=== PATIENT | female | born 1980 | race Caucasian/White ===

== ENCOUNTER 2023-04-22 15:58 | Outpatient (AMB) | payer OTHER, SELFPAY ==
--- NOTE | 2023-04-22 16:14 | MHC.PC.OV ---
Vital Signs 04/22/23 16:17 Height 5 ft 6 in Weight 128 lb BMI 20.7 BP 100/58 L Blood Pressure Location Rt brachial Position Sitting Pulse 76 Pulse Source Pulse Oximeter Intake Visit Reasons: New patient-requesting physical Intake Note: Patient here to establish care and would like a physical exam. She states she gets migraines very bad that come about 3x a week. Accompanied by: Self / Same As Patient Is last menstrual period known: Yes Post menopausal: No Patient : No Allergies No Known Allergies Allergy (Verified 04/22/23 16:50) Medication List - Last Reconciled 04/22/23 by Nelson Goff, ADMINISTRATIVE VOLUNTEER- buprenorphine-naloxone 8-2 mg 2.5 film sublingual DAILY bupropion HCl 150 mg PO BID buspirone 10 mg PO TID gabapentin 300 mg PO .three times a day lorazepam 1 mg PO DAILY PRN minoxidil mg PO paroxetine HCl 20 mg PO DAILY tranexamic acid mg PO DAILY zolpidem 10 mg PO BEDTIME Tobacco use date assessed: 04/22/23 Dental Screening Dental Screen Date: 04/22/23 Did you have a dental visit in the last 12 months?: Yes Did you have a dental problem in the last 6 months where you did not have access to dental care?: No Was dental information given to patient?: Patient has dentist HPI New patient-requesting physical HPI Details New pt is here for a PE. Will order labs. 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 Due for mammo, will order. Pt sees a psychiatrist. She used to see a therapist and will call to get back in with them (pt reported). Denies any SI and HI. 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 pt had a right TM perforation, tympanoplasty (2009), pt reports loss of hearing since this procedure to her right ear. Will refer to speech and hearing, ? hearing aide. Pt c/o migraines. She reports trying sumatriptan in the past which helped. Will send sumatriptan 25mg. Pt reports photophobia and sonophobia with a migraine (without aura). Pt reports thinking she had imaging in the past. Pt reports the migraines occur several times a week, will consider a preventative in the future. PFSH Surgical History (Updated 04/22/23 @ 16:53 by Nelson Goff, [facility]) History of tympanoplasty of right ear Hx of fusion of cervical spine Social History Housing: Condominium Patient Tobacco Use Status: Former Tobacco user Tobacco use type: Cigarette e-Cigarette/Vaping Use: Currently Using service: No Current occupational status: disabled Cognitive needs: No Hearing needs: No Vision needs: No Questionnaire PHQ-9 Over the last 2 weeks, how often have you been bothered by any of the following problems? 1. Little interest or pleasure in doing things: nearly every day 2. Feeling down, depressed, or hopeless: nearly every day 3. Trouble falling or staying asleep, or sleeping too much: more than half the days 4. Feeling tired or having little energy: nearly every day 5. Poor appetite or overeating: nearly every day 6. Feeling bad about yourself - or that you are a failure or have let yourself or your family down: nearly every day 7. Trouble concentrating on things, such as reading the newspaper or watching television: more than half the days 8. Moving or speaking so slowly that other people could have noticed. Or the opposite - being so fidgety or restless that you have been moving around a lot more than usual: several days 9. Thoughts that you would be better off or of hurting yourself in some way: not at all Total score: 20 Depression Screening Interpretation: Positive Depression Screening Follow-up: Existing condition and In treatment Depression Screening Done: Yes 17145 - PHQ-9 Billing: Yes Source: Developed by Drs. Paolo Freitas, Adri Carver, Nico Peralta and colleagues, with an educational kenya from [email or web address]. Thrive Questionnaire Date Thrive assessed: 04/22/23 I am a: Patient What is your living situation today?: I have a steady place to live Within the past 12 months, did the food you bought not last and you didn't have the money to get more?: Never true Within the past 12 months, did you worry whether your food would run out before you got money to buy more?: Never true Do you have trouble paying for medicines?: No Do you have trouble getting transportation to medical appointments?: No Do you have trouble paying your heating and electricity bill?: No Do you have trouble taking care of your child, family member or friend?: No Do you have trouble with day-to-day activities such as bathing, preparing meals, shopping, managing finances, etc.?: No Are you currently unemployed and looking for a job?: Yes Are you interested in more education?: No Currently or been in a relationship where the following occur: no concerns reported AUDIT C Alcohol Use Questionnaire (AUDIT-C) 1. How often do you have a drink containing alcohol?: Monthly or less 2. How many drinks containing alcohol do you have on a typical day when you are drinking?: 1 or 2 3. How often do you have six or more drinks on one occasion?: Never Total Score: 1 Score Reviewed/Action Taken: No OLAYINKA-7 AMB Questionnaire OLAYINKA-7 Date OLAYINKA - 7 assessed: 04/22/23 Feeling nervous, anxious, or on edge: 2 = More than half the days Not being able to stop or control worryin = More than half the days Worrying too much about different things: 2 = More than half the days Trouble relaxin = More than half the days Being so restless that it is hard to sit still: 0 = Not at all Becoming easily annoyed or irritable: 3 = Nearly every day Feeling afraid as if something awful might happen: 0 = Not at all Total OLAYINKA-7 score (0-4 normal; 5-9 mild; 10-14 moderate; 15-21 severe): 11 Source: Developed by Drs. Paolo Freitas, Adri Carver, Nico Peralta and colleagues, with an educational kenya from [email or web address]. OLAYINKA-7 Assessment Billing OLAYINKA-7 Assessment Tool: OLAYINKA-7 Assessment 21027 Review of Systems Const Denies chills and Denies fever(s) Eyes Denies blurry vision ENT Denies vertigo, Denies dizziness and Denies sore throat Card Denies chest pain at rest, Denies chest pain with activity, Denies diaphoresis, Denies dyspnea and Denies dyspnea on exertion Resp Denies cough, Denies dyspnea, Denies dyspnea on exertion and Denies wheezing GI Denies abdominal pain, Denies melena, Denies hematochezia, Denies constipation, Denies diarrhea and Denies loose stools Denies hematuria Musc Denies numbness and Denies tingling Skin/Breast Denies lesions Neuro Denies vertigo, Denies dizziness, Denies numbness and Denies tingling Psych Denies anxiety, Denies depression, Denies homicidal ideation, Denies suicidal ideation and Denies other (substance abuse) Aller/Immun Denies wheezing Physical exam (Primary Care) Vital Signs: Last Vital Signs Pulse 76 04/22/23 16:17 BP 100/58 L 04/22/23 16:17 BMI result Body Mass Index 20.7 Tobacco/Smoking Status: Tobacco use Status Tobacco use date assessed 04/22/23 04/22/23 16:27 Patient Tobacco Use Status Former Tobacco user 04/22/23 16:27 Tobacco use type Cigarette 04/22/23 16:27 e-Cigarette/Vaping Use Currently Using 04/22/23 16:27 PHQ-9: PHQ-9 Score PHQ-9: Total score 20 04/22/23 16:30 Depression Screening Interpretation: Positive Depression Screening Follow-up: Existing condition and In treatment Thrive Assessment: Date of Thrive Assessment Date Thrive assessed 04/22/23 04/22/23 16:28 Currently or been in a relationship where the following occur: no concerns reported Const General: cooperative Nutritional Appearance: well nourished Orientation/consciousness: patient oriented x3 HENMT Other: large perforation to septum Head: Yes normal to inspection, Yes normocephalic and Yes atraumatic Ears: TM's normal bilaterally Eyes General: appearance normal, both eyes and all related structures Alignment and Position: alignment normal and position normal Neck Neck: Yes normal visual inspection and Yes no lymphadenopathy Thyroid: Thyroid normal Resp Effort & Inspection: normal respiratory effort Auscultation: clear to auscultation bilaterally Cardio Rate: regular rate Rhythm: regular rhythm Heart sounds: S1 normal heart sound present, S2 normal heart sound present and no murmurs GI Palpation (GI): Soft to palpation and nontender Auscultation: normal bowel sounds Skin Rashes: no rashes Neuro General: patient oriented x3, moves all extremities, no focal motor deficits and deep tendon reflexes 2+ bilaterally Romberg Test: Negative Psych Appearance: grossly normal Mental Status: mental status grossly normal Speech and movement: Normal speech and movement present Affect: normal affect Attitude: cooperative Thought process: Normal thought process present Thought content: Normal thought content present Insight: Good insight present (Psych) Judgement: Good judgement present (Psych) Assessment and Plan Assessment & Plan (1) Loss of hearing: Code(s): H91.90 - Unspecified hearing loss, unspecified ear Plan: Referred to speech and hearing (2) Nasal septal perforation: Code(s): J34.89 - Other specified disorders of nose and nasal sinuses Plan: Referred to ENT (3) Encounter for routine adult physical exam with abnormal findings: Code(s): Z00.01 - Encounter for general adult medical examination with abnormal findings Plan: labs ordered Plan The patient agreed to the use of a medical lab technologist for this encounter. Scribed for EYAD Mccann-BC by Yolanda eMndez medical lab technologist, on 04/22/2023 at 16:45 EST. Orders: Orders MM screening mammo BI Today Z12.31 - Encounter for screening mammogram for malignant neoplasm of breast Complete Blood Count Auto Diff Today Z00.00 - Encounter for general adult medical examination without abnormal findings Comprehensive [place]. Panel Fast Today Z00.00 - Encounter for general adult medical examination without abnormal findings TSH reflex Free T4 Today Z00.00 - Encounter for general adult medical examination without abnormal findings UA CC w/rflx Micro + Cult Today Z00.00 - Encounter for general adult medical examination without abnormal findings Lipid Panel Today Z00.00 - Encounter for general adult medical examination without abnormal findings Referrals Speech and Hearing Referral H91.90 - Unspecified hearing loss, unspecified ear Ear/Nose/Throat Referral J34.89 - Other specified disorders of nose and nasal sinuses Medications: New sumatriptan succinate take 1 tab at onset of headache; if no relief may repeat 1 tab after at least 2 hrs; max = 4 tabs/24 hr PO 10 tabs 0RF Coding Level of Care Code New Pt Prev Care 40-64y(78892) Diagnoses Loss of hearing H91.90 Nasal septal perforation J34.89 Encounter for routine adult physical exam with abnormal findings Z00.01 Additional Codes OLAYINKA-7 Assessment Billing - OLAYINKA-7 Assessment Tool: OLAYINKA-7 Assessment 81633 ([id number])
[2023-04-22 16:17] VITALS: BP 100/58; PULSE 76; BMI 20.7
== END 2023-04-22 17:12 | disposition home or self-care (01) ==
LOC: HO.HMGC 15:58
PROVIDERS: PCP Nurse Practitioner Family; Visit Provider Nurse Practitioner Family
DX: Z00.00 Encounter for general adult medical examination without abnormal findings (principal); H91.91 Unspecified hearing loss, right ear; J34.89 Other specified disorders of nose and nasal sinuses
CPT/HCPCS: 99386